=== PATIENT | female | born 1990 | race American Indian/Alaskan Native ===

== ENCOUNTER 2017-05-08 10:09 | Inpatient (IN) | payer MEDICAID ==
[2017-05-08] MEDS ORDERED: PITOCin/NS 20 UNIT/1000ML DRIP 20,000 MILLIUNITS/1,000 ML BAG IV ONE (10:46)
[2017-05-08] MEDS ORDERED: TYLENOL PO PRN (11:13)
[2017-05-08] MEDS ORDERED: MILK OF MAGNESIA PO PRN (11:13)
[2017-05-08] MEDS ORDERED: BENADRYL PO PRN (11:13)
[2017-05-08] MEDS ORDERED: DULCOLAX PR PRN (11:13)
[2017-05-08] MEDS ORDERED: PHENERGAN PO PRN (11:13)
[2017-05-08] MEDS ORDERED: PHENERGAN PR PRN (11:13)
[2017-05-08] MEDS ORDERED: TUCKS PAD TP PRN (11:13)
[2017-05-08] MEDS ORDERED: LANSINOH TP PRN (11:13)
[2017-05-08] MEDS ORDERED: NORCO 5/325 PO PRN (11:13)
[2017-05-08] MEDS ORDERED: ZOFRAN IV PRN (11:13)
--- NOTE | 2017-05-08 11:55 | History and Physical Report ---
History of Present Illness Date of examination: 05/08/17 Date of admission: 05/08/17 10:15 Chief complaint: Contractions History of present illness: 26yo G 4 P 0 2 1 2 @ 37 weeks 4 days here with c/o contractions since 03:00 and vaginal bleeding. She reports positive movements and denies loss of fluid. She is a [employer] and her last visit was Mar, 2017. No records available. She reports h/o deliveries @ 35 wks and 32 wks as well as placenta abruption with her last . Her care is co- managed with [facility], per pt. She denies any complications with this . GBS unknown. Past History Past Medical History: no pertinent history Past Surgical History: no surgical history Family/Genetic History: none Social history: no significant social history - Obstetrical History Expected Date of Delivery: 05/25/17 Actual Gestation: 37 Week(s) 4 Day(s) : 4 Para: 2 Hx # Term Pregnancies: 0 Number of Pregnancies: 2 Spontaneous Abortions: 1 Induced : 0 Number of Living Children: 2 Medications and Allergies Allergies Allergy/AdvReac Type Severity Reaction Status Date / Time Penicillins Allergy Unknown Verified 08/05/14 11:02 Home Medications Medication Instructions Recorded Confirmed Last Taken Type Ibuprofen [Motrin 600 MG tab] 600 mg PO Q6H #100 tablet 08/09/14 05/08/17 Unknown Rx Pnv No.95/Ferrous Fum/Folic AC 1 tab PO QDAY 05/08/17 05/08/17 2 Days Ago History [ Formula Tablet] ~05/06/17 Active Meds: Active Medications Acetaminophen (Tylenol) 650 mg PO Q4H PRN PRN Reason: Pain MILD(1-3)/Fever >100.5/ALVES Acetaminophen/Hydrocodone Bitart ([place] 5/325) 2 each PO Q6H PRN PRN Reason: Pain, Moderate (4-6) Bisacodyl (Dulcolax) 10 mg [place] BID PRN PRN Reason: Constipation Diphenhydramine HCl (Benadryl) 25 mg PO Q6H PRN PRN Reason: Itching Lactated Ringer's (Lactated Ringers) 1,000 mls @ 125 mls/hr IV DIRECT BELINDA Oxytocin/Sodium Chloride (Pitocin/Ns 20 Unit/1000ml Drip) 20 units in 1,000 mls @ 125 mls/hr IV DIRECT BELINDA Last Admin: 05/08/17 10:50 Dose: 125 mls/hr Ibuprofen (Motrin) 600 mg PO Q6H BELINDA Magnesium Hydroxide (Milk Of Magnesia) 30 ml PO HS PRN PRN Reason: Constipation Multi-Ingredient Ointment (Lansinoh) 1 applic TP PRN PRN PRN Reason: Sore Nipples Multivitamins/Iron/Calcium ( Vitamin) 1 each PO QDAY BELINDA Ondansetron HCl (Zofran) 4 mg IV Q8H PRN PRN Reason: Nausea And Vomiting Promethazine HCl (Phenergan) 25 mg VT Q6H PRN PRN Reason: Nausea And Vomiting Promethazine HCl (Phenergan) 25 mg PO Q6H PRN PRN Reason: Nausea And Vomiting Sodium Chloride (Sodium Chloride Flush Syringe 10 Ml) 10 ml IV PRN NR Stop: 05/08/17 23:00 Witch Lory/Glycerin (Tucks Pad) 1 each TP PRN PRN PRN Reason: Hemorrhoid/cleansing/soothing Review of Systems All systems: negative - Vital Signs Vital signs: Vital Signs Temp 96.6 F L 05/08/17 10:55 Temp Pulse Resp BP Pulse Ox 96.6 F L 101 H 128/82 05/08/17 10:55 05/08/17 11:40 05/08/17 11:40 - Physical Exam Cardiovascular: Regular rate, Normal S1, Normal S2 Lungs: Positive: Clear to auscultation, Normal air movement Abdomen: Positive: normal appearance, soft Genitourinary (Female): Positive: normal external genitalia, normal perenium Vagina: Positive: discharge (bloody) Anus/Rectum: Positive: normal perianal skin Extremities: Positive: normal Deep Tendon Reflex Grade: Normal +2 - Obstetrical FHR: auscultation normal, category 2 FHR comments: baseline 150, moderate variability, no accels, variable decels Cervical Dilatation: 10 (per RN) Cervical Effacement Percentage: 100 (per RN) station: +1 (per RN) Uterine Contraction Frequency (min): 2-3 Uterine Contraction Pattern: Regular Results All other labs normal. Assessment and Plan - Patient Problems (1) 37 weeks gestation of Current Visit: Yes Status: Acute (2) Active labor at term Current Visit: Yes Status: Acute
[2017-05-08] MEDS ORDERED: SODIUM CHLORIDE FLUSH SYRINGE 10 ML IV NR (12:00)
[2017-05-08] MEDS ORDERED: LACTATED RINGERS 1,000 ML IV SCH (12:00)
[2017-05-08] MEDS ORDERED: PITOCin/NS 20 UNIT/1000ML DRIP 20 UNITS/1,000 ML BAG IV SCH (12:00)
--- NOTE | 2017-05-08 12:07 | Procedure Note ---
OB Delivery Note - Delivery Date of Delivery: 05/08/17 (10:47) Surgeon: WHITNEY AGUILAR (BALDEMAR) Estimated blood loss: 300cc - Vaginal Delivery presentation: vertex Delivery position: OA Intrapartum events: precipitous labor- <3hr Delivery induction: none Delivery augmentation: rupture of membranes (AROM @ 10:37, clear, moderate amount) Delivery monitor: external FHT, external uterine Route of delivery: Delivery placenta: spontaneous (10:50) Delivery cord: 3 umbilical vessels Episiotomy: none Delivery laceration: none Anesthesia: none Delivery comments: of a vigorous term 5 lbs 3 oz female @ 10:47. Baby placed on maternal abdomen and after 3 mins, umbilical cord double-clamped by BALDEMAR Aguilar and cut by FOB. Spontaneous delivery of placenta Hoffman-side presenting @ 10:50. Moderate lochia present. Fundal massage and IV pitocin bolus initiated. Fundus F /ML/U. No lacerations present. Perineum intact. Placenta intact; was discarded. Mom and baby in stable condition. - A at 1 minute: 8 at 5 minutes: 9 Gender: Female (5 lbs 3 oz (2356 gm); 17 in)
[2017-05-08 12:16] LABS: Hematocrit 35.9 % (30.3-42.9); Mean Corpuscular HGB Conc 33 % (30-34); Mean Corpuscular Hemoglobin 30 pg (28-32); Mean Corpuscular Volume 90 fl (79-97); Platelet Count 244 K/mm3 (140-440); Red Blood Count 4.01 M/mm3 (3.65-5.03); Red Cell Distribution Width 13.5 % (13.2-15.2)
[2017-05-08] MEDS: MOTRIN PO SCH ×2 (12:33→18:13)
[2017-05-09] MEDS: MOTRIN PO SCH ×4 (00:03→23:58)
[2017-05-09 06:25] LABS: Hematocrit 28.5 % (30.3-42.9); Hemoglobin 9.7 gm/dl (10.1-14.3)
--- NOTE | 2017-05-09 10:57 | Progress Note ---
Assessment and Plan A: PPD#1 s/p Stable P: Routine PP care Plan Discharge home 05/10 Subjective - Subjective Date of service: 05/09/17 Principal diagnosis: PPD#1 s/p Patient reports: appetite normal, voiding normally, pain well controlled, flatus , ambulating normally : doing well Objective - Vital Signs Latest vital signs: Vital Signs Temp Pulse Resp BP BP Pulse Ox 05/09/17 08:56 98.3 F 93 H 18 127/71 97 05/09/17 05:43 20 05/09/17 00:03 18 05/09/17 00:00 98.3 F 87 18 105/64 05/08/17 20:09 98.9 F 88 18 105/55 05/08/17 16:05 98.0 F 106 H 18 126/75 95 05/08/17 14:09 20 05/08/17 12:55 98.9 F 100 H 102/53 97 05/08/17 12:38 96.4 F L 05/08/17 12:25 106 H 132/82 05/08/17 12:10 98 H 137/88 05/08/17 11:55 110 H 133/88 05/08/17 11:40 101 H 128/82 05/08/17 11:25 104 H 125/83 05/08/17 11:10 100 H 119/79 Intake and Output 05/08/17 05/09/17 05/09/17 23:59 07:59 15:59 Intake Total 360 Output Total 500 Balance -500 360 Intake: Intake, Free Water 360 Output: Urine 500 Void 500 Other: Total, Output Amount 500 # Voids Void 300 2 - Exam Breasts: Present: normal Cardiovascular: Present: Regular rate, Normal S1, Normal S2 Lungs: Present: Clear to auscultation, Normal air movement Abdomen: Present: normal appearance, soft, normal bowel sounds Vulva: both: normal (Perineum intact) Uterus: Present: normal, firm, fundal height below umbilicus (-2) Extremities: Present: normal Deep Tendon Reflex Grade: Normal +2 - Labs Labs: Abnormal lab results 05/08/17 05/09/17 Range/Units 10:30 05:46 WBC 15.7 H (4.5-11.0) K/mm3 Hgb 9.7 L (10.1-14.3) gm/dl Hct 28.5 L D (30.3-42.9) %
--- NOTE | 2017-05-09 11:00 | Discharge Summary ---
Providers - Providers Date of Admission: 05/08/17 10:15 Date of discharge: 05/10/17 Attending physician: THAO LOCKHART MD Primary care physician: THAO LOCKHART MD Hospitalization Reason for admission: active labor, IUP - (37w4d) Delivery: Procedure details: See H&P and delivery note Episiotomy: none Laceration: none Other procedures: none complications: none Discharge diagnosis: delivery baby: female Condition at discharge: Good Disposition: DC-01 TO HOME OR SELFCARE Plan - Provider Discharge Summary Activity: routine, no sex for 6 weeks, no heavy lifting 4 weeks, no strenuous exercise Diet: routine Instructions: routine Additional instructions: [] Smoking cessation referral if applicable(refer to patient education folder for contact #) [] Refer to [facility] Booklet Call your doctor immediately for: * Fever > 100.5 * Heavy vaginal bleeding ( >1 pad per hour) * Severe persistent headache * Shortness of breath * Reddened, hot, painful area to leg or breast * Drainage or odor from incision. * Keep incision clean and dry at all times and follow doctor's instructions regarding bathing/showering - Follow up plan Follow up: THAO LOCKHART MD [Primary Care Provider] - 6 Weeks
[2017-05-09] MEDS: PRENATAL VITAMIN PO SCH (11:08)
[2017-05-10] MEDS: MOTRIN PO SCH (05:11)
[2017-05-10] MEDS: PRENATAL VITAMIN PO SCH (08:45)
[2017-05-10 17:24] VITALS: BP 126/68
== END 2017-05-10 15:57 | disposition home or self-care (01) | DRG 775 ==
LOC: TRG 10:09 → LD 10:15 → OB 12:52
PROVIDERS: ADMIT Obstetrics & Gynecology; ATTEND Obstetrics & Gynecology
PROC: 10E0XZZ Delivery of Products of Conception, External Approach (ICD-10-PCS; principal; 2017-05-08)
PROC: 10907ZC Drainage of Amniotic Fluid, Therapeutic from Products of Conception, Via Natural or Artificial Opening (ICD-10-PCS; 2017-05-08)
DX: O62.3 Precipitate labor (principal); O60.14X0 Preterm labor third trimester with preterm delivery third trimester, not applicable or unspecified; Z3A.37 37 weeks gestation of pregnancy; Z37.0 Single live birth
CPT/HCPCS: 36415; 85014; 85018; 85027; 86592; 86850; 86900; 86901; 99211; A6250; G0463; J2590

== ENCOUNTER 2019-02-07 10:08 | Inpatient (IN) | payer MEDICAID ==
[2019-02-07] MEDS ORDERED: OXYTOCIN 10 UNIT/1 ML INJ ONE (10:50)
[2019-02-07] MEDS ORDERED: MINERAL OIL 30 ML ORAL LIQD ONE (10:52)
[2019-02-07] MEDS ORDERED: OXYTOCIN 10 UNIT/1 ML INJ IM ONE (10:53)
[2019-02-07] MEDS ORDERED: TERBUTALINE 1 MG/1 ML INJ IVP PRN (11:16)
[2019-02-07] MEDS ORDERED: MINERAL OIL 30 ML ORAL LIQD PO PRN (11:16)
[2019-02-07] MEDS ORDERED: TERBUTALINE 1 MG/1 ML INJ SUB-Q PRN (11:16)
[2019-02-07] MEDS ORDERED: WITCH HAZEL/ GLYCERIN PAD TP PRN (11:19)
[2019-02-07] MEDS ORDERED: LANOLIN/ZINC/DIMETHICONE (LANSINOH) 7 GM TP PRN (11:19)
[2019-02-07] MEDS ORDERED: diphenhydrAMINE 25 MG CAP PO PRN (11:19)
[2019-02-07 11:32] LABS: Hematocrit 34.9 % (30.3-42.9); Hemoglobin 11.8 gm/dl (10.1-14.3); Mean Corpuscular HGB Conc 34 % (30-34); Mean Corpuscular Volume 87 fl (79-97); Platelet Count 264 K/mm3 (140-440); Red Blood Count 4.01 M/mm3 (3.65-5.03); Red Cell Distribution Width 13.9 % (13.2-15.2)
--- NOTE | 2019-02-07 11:32 | Procedure Note ---
OB Delivery Note - Delivery Date of Delivery: 02/07/19 (1050) Surgeon: BALJIT SCHROEDER Estimated blood loss: 200cc - Vaginal Delivery presentation: vertex Delivery position: OA Intrapartum events: labor-<37 weeks, precipitous labor- <3hr Delivery induction: none Delivery monitor: external FHT, external uterine Route of delivery: Delivery placenta: spontaneous Delivery cord: 3 umbilical vessels Episiotomy: none Delivery laceration: none Anesthesia: none Delivery comments: Precipitous vaginal delivery of a 6'15 male over a intact perineum without pain control with Apgars of 8 and 9 at 1050 on 02/07/2019. directly to maternal abd/chest, skin to skin contact. Spontaneous delivery of placenta complete and intact with Hoffman side presenting at 1055. 10U of Pitocin given IM after placental delivery (no IV). Fundus is firm and midline located 5 below the U. Lochia is scant. Delayed cord clamping and cutting; Cord cut by patient's cousin. Cord blood collected. Placenta to pathology. - A at 1 minute: 8 at 5 minutes: 9 Infant Gender: Male (6'15)
[2019-02-07] MEDS ORDERED: LACTATED RINGERS 1,000 ML IV SCH (12:00)
[2019-02-07] MEDS: IBUPROFEN 600 MG TAB PO SCH (12:27)
--- NOTE | 2019-02-07 13:18 | History and Physical Report ---
History of Present Illness Date of examination: 02/07/19 Date of admission: 02/07/19 10:19 Chief complaint: Intense Labor Pains History of present illness: Late entry to care at 16 weeks, Co-managed with [facility] due to Hx of deliveries. Patient was receiving Mekena weekly. Non-Compliant with care, last visit at [facility] was 12/19/2018 at 29 2/7 weeks. Past History Past Medical History: no pertinent history Past Surgical History: no surgical history [employer] History: abnormal PAP smear, chlamydia, gonorrhea Family/Genetic History: cancer (Bone CA: MGM) Social history: no significant social history, single - Obstetrical History Expected Date of Delivery: 03/03/19 Actual Gestation: 36 Week(s) 4 Day(s) : 5 Para: 3 Hx # Term Pregnancies: 1 Number of Pregnancies: 2 Spontaneous Abortions: 1 Number of Living Children: 3 #1 Infant Gender: Female year: 2,[birth year] Birthweight: 2.466 kg Method of Delivery: Vaginal Gestational age at delivery: 36 Complications: none #2 Infant Gender: Male year: 2,[birth year] Birthweight: 2.098 kg Method of Delivery: Vaginal Gestational age at delivery: 33 #3 Gender: Female year: 2,[birth year] Birthweight: 2.353 kg Method of Delivery: Vaginal Gestational age at delivery: 37 Complications: none Medications and Allergies Allergies Allergy/AdvReac Type Severity Reaction Status Date / Time Penicillins Allergy Unknown Verified 08/05/14 11:02 Home Medications Medication Instructions Recorded Confirmed Last Taken Type Ibuprofen [Motrin 600 MG tab] 600 mg PO Q6H #100 tablet 08/09/14 05/08/17 Unknown Rx Pnv No.95/Ferrous Fum/Folic AC 1 tab PO QDAY 05/08/17 05/08/17 2 Days Ago History [ Formula Tablet] ~05/06/17 Active Meds: Active Medications Acetaminophen/Hydrocodone Bitart ([place] 5/325) 2 each PO Q6H PRN PRN Reason: Pain, Moderate (4-6) Bisacodyl (Dulcolax) 10 mg [place] BID PRN PRN Reason: Constipation Diphenhydramine HCl (Benadryl) 25 mg PO Q6H PRN PRN Reason: Itching Lactated Ringer's (Lactated Ringers) 1,000 mls @ 125 mls/hr IV DIRECT BELINDA Ibuprofen (Ibuprofen) 600 mg PO Q6H BELINDA Last Admin: 02/07/19 12:27 Dose: 600 mg Documented by: Mineral Oil (Mineral Oil) 30 ml PO QHS PRN PRN Reason: Constipation Multi-Ingredient Ointment (Lansinoh) 1 applic TP PRN PRN PRN Reason: Sore Nipples Sodium Chloride (Sodium Chloride Flush Syringe 10 Ml) 10 ml IV PRN NR Stop: 02/10/19 11:59 Terbutaline Sulfate (Brethine) 0.25 mg SUB-Q ONCE PRN PRN Reason: Hyperstimulation/Hypertonicity Terbutaline Sulfate (Brethine) 0.25 mg IVP ONCE PRN PRN Reason: Hyperstimulation/Hypertonicity Witch Lory/Glycerin (Tucks Pad) 1 each TP PRN PRN PRN Reason: Hemorrhoid/cleansing/soothing Review of Systems All systems: negative - Vital Signs Vital signs: Vital Signs Temp Pulse BP 98.4 F 105 H 115/69 02/07/19 10:27 02/07/19 10:27 02/07/19 10:27 Temp Pulse Resp BP Pulse Ox 98.4 F 99 H 16 138/98 02/07/19 10:27 02/07/19 12:12 02/07/19 12:27 02/07/19 12:12 - Physical Exam Breasts: Positive: normal Cardiovascular: Regular rate Lungs: Positive: Clear to auscultation, Normal air movement Abdomen: Positive: normal appearance, soft, normal bowel sounds Genitourinary (Female): Positive: normal external genitalia, normal perenium Uterus: Positive: enlarged Anus/Rectum: Positive: normal perianal skin - Obstetrical FHR: category 1 Uterine Contraction Monitor Mode: External Cervical Dilatation: 10 Cervical Effacement Percentage: 100 station: +2 Uterine Contraction Pattern: Regular Uterine Contraction Intensity: Moderate Results Result Diagrams: 02/07/19 Unknown Abnormal lab results 02/07/19 Range/Units Unknown WBC 11.9 H (4.5-11.0) K/mm3 All other labs normal. Assessment and Plan A: IUP @ 36 4/7 weeks Active Labor GBS Unknown P: Admit to L&D per Routine Orders Anticipate
[2019-02-07] MEDS: HYDROcodone/ACETAMINOPHEN 5-325 MG TAB PO PRN ×2 (14:21→20:22)
[2019-02-08 01:24] LABS: Hematocrit 32.6 % (30.3-42.9)
[2019-02-08] MEDS: IBUPROFEN 600 MG TAB PO SCH ×7 (06:00→22:48)
--- NOTE | 2019-02-08 09:47 | Progress Note ---
Assessment and Plan - Patient Problems (1) Status post normal vaginal delivery Current Visit: Yes Status: Acute Plan to address problem: Continue routine PP orders Anticipate d/c home tomorrow F/U at office in 6 wks for routine PP visit Subjective - Subjective Date of service: 02/08/19 Principal diagnosis: S/P ; PPD#1 Interval history: See admission H & P; OB delivery summary and PP progress note Patient reports: appetite normal, voiding normally, pain well controlled, flatus, ambulating normally : doing well, bottle feeding (and ) Objective - Vital Signs Latest vital signs: Vital Signs Temp Pulse Resp BP BP Pulse Ox 02/08/19 09:00 98.4 F 96 H 20 110/66 02/08/19 06:00 16 02/08/19 01:46 98.0 F 97 H 18 110/81 96 02/08/19 00:00 18 02/07/19 21:22 18 02/07/19 20:22 18 02/07/19 19:52 99.2 F 104 H 20 125/82 97 02/07/19 15:56 98.9 F 113 H 20 114/70 97 02/07/19 12:27 16 02/07/19 12:12 99 H 138/98 02/07/19 11:57 97 H 125/80 02/07/19 11:27 99 H 102/61 02/07/19 11:12 100 H 114/58 02/07/19 10:30 105 H 115/69 02/07/19 10:27 98.4 F 105 H 115/69 Intake and Output 02/07/19 02/08/19 02/08/19 23:59 07:59 15:59 Intake Total 720 600 360 Balance 720 600 360 Intake: Oral 480 360 Intake, Free Water 240 600 Other: Total, Intake Amount 240 360 Voiding Method Toilet # Voids Void 1 1 1 - Exam Breasts: Present: normal Cardiovascular: Present: Regular rate Lungs: Present: Normal air movement Abdomen: Present: soft Uterus: Present: firm, fundal height below umbilicus (U-1) Extremities: Present: normal Deep Tendon Reflex Grade: Normal +2 - Labs Labs: Abnormal lab results 02/07/19 Range/Units Unknown WBC 11.9 H (4.5-11.0) K/mm3
--- NOTE | 2019-02-08 09:55 | Discharge Summary ---
Providers - Providers Date of Admission: 02/07/19 10:19 Date of discharge: 02/09/19 (0900) Attending physician: SHAGGY PEREZ MD Primary care physician: THAO LOCKHART MD Hospitalization Reason for admission: active labor, IUP at term Delivery: Episiotomy: none Laceration: none Other procedures: none complications: none Discharge diagnosis: IUP at term delivered baby: male Hospital course: See admission H & P; OB delivery summary and PP progress note Condition at discharge: Good Disposition: DC-01 TO HOME OR SELFCARE - Discharge Diagnoses (1) Status post normal vaginal delivery Status: Acute Plan - Provider Discharge Summary Activity: routine, no sex for 6 weeks, no heavy lifting 4 weeks, no strenuous exercise Diet: routine Instructions: routine Additional instructions: [] Smoking cessation referral if applicable(refer to patient education folder for contact #) [] Refer to [facility]'s [facility] Booklet Call your doctor immediately for: * Fever > 100.5 * Heavy vaginal bleeding ( >1 pad per hour) * Severe persistent headache * Shortness of breath * Reddened, hot, painful area to leg or breast - Follow up plan Follow up: THAO LOCKHART MD [Primary Care Provider] - 6 Weeks Forms: [facility] Discharge Summary
[2019-02-08] MEDS: HYDROcodone/ACETAMINOPHEN 5-325 MG TAB PO PRN ×2 (14:28→21:03)
[2019-02-09] MEDS: HYDROcodone/ACETAMINOPHEN 5-325 MG TAB PO PRN (03:37)
[2019-02-09] MEDS: IBUPROFEN 600 MG TAB PO SCH ×2 (06:13→13:49)
[2019-02-09 17:30] VITALS: BP 112/69
== END 2019-02-09 19:03 | disposition home or self-care (01) | DRG 775 ==
LOC: TRG 10:08 → LD 10:19 → OB 14:06
PROVIDERS: ADMIT Obstetrics & Gynecology; ATTEND Obstetrics & Gynecology
PROC: 10E0XZZ Delivery of Products of Conception, External Approach (ICD-10-PCS; principal; 2019-02-07)
DX: O60.14X0 Preterm labor third trimester with preterm delivery third trimester, not applicable or unspecified (principal); Z3A.36 36 weeks gestation of pregnancy; Z37.0 Single live birth; Z88.0 Allergy status to penicillin; O62.3 Precipitate labor
CPT/HCPCS: 36415; 85014; 85018; 85027; 86850; 86900; 86901; 88307; G0378; J2590